=== PATIENT | female | born 1980 | race Caucasian/White ===

== ENCOUNTER → 2017-07-17 | Outpatient (CLI) | payer OTHER ==
[~2017-07-17] MED LIST: AZIT-1 PO; CLOB59LO4 TP; LEVO50TA86 PO
== END ==
LOC: LAB 12:43
PROVIDERS: ATTEND Nurse Practitioner Family
DX: J02.0 Streptococcal pharyngitis (principal); B95.0 Streptococcus, group A, as the cause of diseases classified elsewhere
CPT/HCPCS: 87081; 87880

== ENCOUNTER → 2017-10-24 | Outpatient (CLI) | payer OTHER ==
[~2017-10-24] MED LIST changes: +CELE-1 PO
[2017-10-24 09:13] LABS: PLATELET COUNT, AUTOMATED 277 K/uL (150-450)
== END ==
LOC: LAB 08:36
PROVIDERS: ATTEND Internal Medicine
DX: M19.90 Unspecified osteoarthritis, unspecified site (principal); R60.9 Edema, unspecified; E03.9 Hypothyroidism, unspecified; L40.9 Psoriasis, unspecified
CPT/HCPCS: 36415; 82040; 82247; 82306; 82310; 82374; 82435; 82565; 82947; 84075; 84132; 84155; 84295; 84439; 84443; 84450; 84460; 84520; 84550; 85025; 85651; 86038; 86140; 86200; 86430

== ENCOUNTER → 2018-06-09 | Outpatient (CLI) | payer OTHER ==
[~2018-06-09] MED LIST changes: +IBUP-56 PO
== END ==
LOC: LAB 14:11
PROVIDERS: ATTEND Obstetrics & Gynecology
DX: N92.0 Excessive and frequent menstruation with regular cycle (principal)
CPT/HCPCS: 84439; 84443; 85027

== ENCOUNTER 2018-07-15 00:30 | Day surgery (SDC) | payer OTHER ==
[~2018-07-15] VITALS: Ht 167.6 cm; Wt 90.3 kg
[2018-07-15] MEDS ORDERED: DOXYCYCLINE HYCL 100 MG TAB PO ONE (06:30)
[2018-07-15 06:34] LABS: PLATELET COUNT, AUTOMATED 268 K/uL (150-450)
[2018-07-15 06:37] VITALS: BP 136/85
[2018-07-15] MEDS ORDERED: fentaNYL CITR 100 MCG/2 ML AMP ONE (07:33)
[2018-07-15] MEDS ORDERED: LOR5/325 PO (07:41)
[2018-07-15] MEDS ORDERED: IBUP800T37 PO (07:41)
[2018-07-15] MEDS ORDERED: ONDANSETRON 4 MG/2 ML VIAL ONE (07:49)
[2018-07-15] MEDS ORDERED: KETOROLAC 30 MG/ML VIAL ONE (07:49)
[2018-07-15] MEDS ORDERED: PROPOFOL EMUL(*) 10MG/ML 20 ML 20 ML ONE (07:49)
[2018-07-15] MEDS ORDERED: DEXAMETHASONE SOD PHOS 10MG/ML ONE (07:49)
[2018-07-15] MEDS ORDERED: LR(*) 1000 ML BAG 1,000 ML IV ONE (08:04)
--- NOTE | 2018-07-15 08:04 | Post Operative Note ---
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
[2018-07-15] MEDS ORDERED: METOCLOPRAMIDE 10 MG/2 ML SDV IVP PRN (08:05)
[2018-07-15] MEDS ORDERED: APAP/HYDROCODONE 325/5 TAB PO PRN (08:05)
--- NOTE | 2018-07-15 08:06 | Short(Outpt) Discharge Summary ---
Discharge Summary Reason for Hosp/Final Diag: (1) Status post hysteroscopy Departure Discharge to: Home, Self Care Discharge Instructions Home Meds Active Scripts Hydrocodone Bit/Acetaminophen (HYDROCODON-ACETAMINOPHEN 5-325) 1 Each Tablet, 1 EACH PO Q6H PRN for pain, #4 TAB 0 Refills Prov:VICKI CANO MD 07/15/18 Levothyroxine Sodium (LEVOTHYROXINE SODIUM) 50 Mcg Tablet, 1 TAB PO QDAY, #90 TAB 1 Refill Prov:YOHANA CUI MD 01/27/18 Celecoxib (CELEBREX) 200 Mg Capsule, 200 MG PO QDAY PRN for pain, #30 CAPSULE 4 Refills Prov:YOHANA CUI MD 10/24/17 Reported Medications Ibuprofen (IBUPROFEN) 200 Mg Tablet, 2 TAB PO PRN, TAB 06/09/18 Follow up Referrals: BAR[facility] COOPER - In Two Weeks [place] [facility] with VICKI CANO MD Diet: Regular Activity: As Tolerated VICKI CANO MD Jul 15, 2018 08:06
--- NOTE | 2018-07-15 08:37 | OPERATIVE REPORT 1 ---
EVENT DATE: July 15, 2018 SURGEON: Yen Kumar MD ANESTHESIOLOGIST: Kraig Joya MD ANESTHESIA: General LMA. PREOPERATIVE DIAGNOSES 1. Heavy and irregular bleeding. 2. Endometrial lesion on ultrasound. POSTOPERATIVE DIAGNOSES 1. Heavy and irregular bleeding. 2. Endometrial lesion on ultrasound. PROCEDURES PERFORMED 1. Diagnostic hysteroscopy. 2. Mirena intrauterine device insertion. FINDINGS Normal endometrial cavity. IV FLUIDS 1000 cc. URINE OUTPUT 110 cc. ESTIMATED BLOOD LOSS Minimal. INDICATIONS FOR PROCEDURE This patient is a 38-year-old 3, para 3 who initially presented with complaints of heavy and irregular bleeding since 2010. She underwent an ultrasound on June 12, 2018, with evidence of a 1.7 x 1.1 hypoechoic mass within the lining of the endometrium. She did undergo an endometrial biopsy, which was benign. After discussing her management options, she elected to proceed with hysteroscopic removal of the lesion as well as Mirena intrauterine device insertion. She, therefore, was prepared for the procedure. DESCRIPTION OF PROCEDURE The patient was properly identified and taken to the operating room. She was placed under general anesthesia and placed in the dorsal lithotomy position. She was prepped and draped in the usual fashion for a vaginal procedure. The bladder was drained of 110 cc's of clear yellow urine. Speculum was then placed to visualize the cervix, which was multiparous and without lesion. The anterior lip of the cervix was grasped with an Allis clamp and gentle traction was placed and the cervix was serially dilated to 5 mm using Hegar dilators. The hysteroscope was then assembled and primed. The hysteroscope was introduced under direct visualization. Upon insertion, there was a significant amount of dark brown fluid was removed before a clear visual could be had of the endometrial cavity. At this time, the endometrial cavity did appear within normal limits. There was no evidence of a mass or lesion. Therefore, the hysteroscope was removed. A Mirena IUD was then assembled and introduced up to the fundus. The string was trimmed to 2 cm. The Allis clamp was then removed as well as the speculum. The patient tolerated this procedure well and recovered in the Post-Anesthesia Care Unit. All sponge counts were correct at the end of this procedure. MTDD
[2018-07-15 09:00] VITALS: BP 99/79
[2018-07-15 09:04] VITALS: BP 127/85
[2018-07-15 09:06] VITALS: BP 110/89
[2018-07-15] MEDS ORDERED: MIDAZOLAM 2 MG/2 ML VIAL IVP PRN (09:25)
[2018-07-15] MEDS ORDERED: LIDOCAINE/SOD BICARB 8.4% SYR ID ONE (09:25)
[2018-07-15] MEDS ORDERED: FAMOTIDINE 20 MG TAB PO ONE (09:25)
[2018-07-15] MEDS ORDERED: NORMOSOL R SOLN(*) 1000 ML BAG 1,000 ML IV PRN (09:25)
--- NOTE | 2018-07-15 10:27 | NUR ---
0900- PT. RECEIVED FROM PACU VIA STRETCHER WITH SIDERAILS UP. SBAR REPORT RECEIVED FROM Rosalinda ZAVALETA AND LAMONT CASTANEDA. PT. TOLERATED TRANSFER WELL AND STATES THAT SHE FEELS GREAT. 0904- PT. STATES THAT SHE IS READY TO GO HOME. ORTHOSTATIC BP PREFORMED. PT. TOLERATED WELL 0910- PT. GETTING DRESSED 0920- DISCHARGE INSTRUCTIONS GONE OVER WITH PT. AND AND STATED UNDERSTANDING. 0924- IV TAKEN OUT AND PRESSURE DRESSING APPLIED. 0930- WHEELED PT. OUT TO VEHICLE VIA WHEELCHAIR ACCOMPANIED BY . PT. TOLERATED WELL.
[2018-07-15] MEDS ORDERED: IBUPROFEN 800 MG TAB PO SCH (14:00)
== END 2018-07-15 09:00 | disposition home or self-care (01) ==
LOC: OR 00:30
PROVIDERS: ATTEND Obstetrics & Gynecology
DX: N92.5 Other specified irregular menstruation (principal); Z30.430 Encounter for insertion of intrauterine contraceptive device
CPT/HCPCS: 58300; 58555; 84703; 85025; J1100; J1885; J2250; J2405; J2704; J3010; 82310; 82374; 82435; 82565; 82947; 84132; 84295; 84520

== ENCOUNTER → 2019-02-23 | Outpatient (CLI) | payer OTHER ==
[~2019-02-23] MED LIST changes: +ESCI10TA8 PO; +IBUP800T37 PO; +LOR5/325 PO
--- NOTE | 2019-02-23 15:56 | RADIOLOGY IMAGING REPORT ---
FACILITY: [facility] - [place] PATIENT NAME: Janell Billings : 1980 MR: [id number] V: [id number] EXAM DATE: ORDERING PHYSICIAN: MAKENZIE BLANCHARD TECHNOLOGIST: Location[place] [facility] [place]: Janell Billings : 1980 Visit/Account:[id number] Date of Sevice: 02/23/2019 Exam type: L-SPINE COMPLETE W/BENDING History: Back pain since April Comparison: None. Findings: Six views were submitted There five nonrib-bearing lumbar-type vertebral bodies present. There is a S-shaped scoliosis of the lumbar spine. There is moderate disc space narrowing at L2-3 with sclerosis of the adjacent endplat es and anterior osteophytes. There is mild disc space narrowing at L3-4 there is no evidence of acut e fractures or subluxations. There are mild degenerative facet joint changes at L5-S1. Incidentally noted is an IUD within the pelvis and tubal implants IMPRESSION: 1. Levoconvex scoliosis of the lumbar spine as described above with associated spondylotic changes Report Dictated By: Lesly Ace MD at 02/23/2019 3:44 PM Report E-Signed By: Lesly Ace MD at 02/23/2019 3:48 PM WSN:[email or web address]
== END ==
LOC: RAD 13:43
PROVIDERS: ATTEND Chiropractor
DX: M41.86 Other forms of scoliosis, lumbar region (principal)
CPT/HCPCS: 72114